=== PATIENT | female | born 1955 | race Hispanic/Latino ===

== ENCOUNTER → 2018-03-16 16:11 | Outpatient (CLI) | payer OTHER, MEDICAID, SELFPAY ==
--- NOTE | 2018-03-16 16:13 | DI.RAD.S_ITS ---
PROCEDURE: XR LUMBAR SPINE 2-3V INDICATIONS: fall at home low back pain TECHNIQUE: 3 views of the lumbar spine were acquired. COMPARISON: None. FINDINGS: Bones: 5 [id number] vertebrae are present. There is normal bony alignment. Mild compression fractures at the T10, T11, L1 and L5 levels of indeterminate age. Multilevel disc degeneration, most notably and moderate to severe the L5-S1 level. Lower lumbar spine facet joint arthropathy. Soft tissues: Overlying bowel gas pattern is normal. No suspicious soft tissue calcifications. IMPRESSION: 1. Mild wedge compression deformities as above of indeterminate acuity. Acute fractures cannot be excluded and if indicated MRI could be performed for further characterization. Dictated by: Moisés Cota [facility] Interpreted: Kirk Cifuentes MD on 03/16/2018 at 17:15 Approved by: Kirk Cifuentes M.D. on 03/16/2018 at 19:53
== END ==
PROVIDERS: PCP Physician Assistant; Visit Provider Physician Assistant
DX: M54.5 Low back pain (principal)
CPT/HCPCS: 72100

== ENCOUNTER → 2018-03-23 11:59 | Outpatient (CLI) | payer OTHER, MEDICAID, SELFPAY ==
--- NOTE | 2018-03-23 12:00 | DI.MG.S_ITS ---
BILATERAL DIGITAL SCREENING MAMMOGRAM 3D/2D WITH CAD: 03/23/2018 CLINICAL: Baseline exam. Routine screening. No prior exams were available for comparison. There are scattered fibroglandular elements in both breasts. Current study was also evaluated with a Computer Aided Detection (CAD) system. No significant masses, calcifications, or other findings are seen in either breast. IMPRESSION: NEGATIVE There is no mammographic evidence of malignancy. A 1 year screening mammogram is recommended. This exam was interpreted at Station ID: [id number]. NOTE: For mammograms, a report in lay terms will be sent to the patient. Approximately 15% of breast malignancies will not be visualized mammographically. In the management of a palpable breast mass, a negative mammogram must not discourage biopsy of a clinically suspicious lesion. Electronically Signed By: Christo hurtado/dank:03/23/2018 15:38:47 letter sent: Normal Exam ACR BI-RADS Category 1: Negative [id number]
== END ==
PROVIDERS: PCP Physician Assistant; Visit Provider Physician Assistant
DX: Z12.31 Encounter for screening mammogram for malignant neoplasm of breast (principal)
CPT/HCPCS: 77063; 77067

== ENCOUNTER → 2018-04-30 08:18 | Outpatient (CLI) | payer OTHER, MEDICAID, SELFPAY ==
--- NOTE | 2018-04-30 08:32 | DI.MRI.S_ITS ---
PROCEDURE: MR LUMBAR SPINE WO CON INDICATIONS: Compression fx lumbar spine/fall at home TECHNIQUE: Noncontrast sagittal T1 spin echo and T2 fast echo, sagittal STIR, axial T1 and T2 fast spin echo through the lumbar spine. In cases with scoliosis, additional coronal T2 fast spin echo may be performed. COMPARISON: [facility], CR, CHEST 2 VIEW, 06/06/2016, 10:25. [facility], CR, XR LUMBAR SPINE 2 OR 3 VIEWS, 04/14/2018, 15:34. [facility], CR, XR LUMBAR SPINE 2-3V, 03/16/2018, 16:27. FINDINGS: Image quality: Limited by beam hardening artifacts possibly related to metal clasps in patient's bra. Alignment and Curvature: There is normal bony alignment. Convex left curvature of the lumbar spine is noted. Bones: Minimal reactive endplate changes noted adjacent to the L5-S1 disc. Small Schmorl's node noted in the inferior endplate of the L5 vertebral body.. No acute vertebral body compression fractures. Spinal Cord: Conus medullaris terminates at the L1-2 disc level. Visualized cord demonstrates normal signal and size. Paraspinous Soft Tissues: No paravertebral masses. L1-L2: Loss of disc signal. Mild, diffuse disc bulge. No central stenosis. No neural foraminal narrowing. No neural impingement. L2-L3: Loss of disc signal. Mild, diffuse disc bulge. Small left foraminal disc protrusion. Mild bilateral facet hypertrophy. No central stenosis. Mild right and moderate left neural foraminal narrowing. No neural impingement. L3-L4: Loss of disc signal. Mild, diffuse disc bulge. Mild bilateral facet hypertrophy. No central stenosis. Mild bilateral neural foraminal narrowing. No neural impingement. L4-L5: Loss of disc signal and slight loss of disc height. Mild, diffuse disc bulge and mild bilateral facet hypertrophy. No central stenosis. Mild bilateral neural foraminal narrowing. No neural impingement. L5-S1: Loss of disc signal and slight loss of disc height. Mild, diffuse disc bulge. Mild bilateral facet hypertrophy. No central stenosis. Severe bilateral neural foraminal narrowing secondary to disc and facet disease with slight flattening deformity the L5 nerve roots bilaterally. Focal high intensity zone annulus compatible fissures. IMPRESSION: 1. No evidence of vertebral body compression fracture. 2. Multilevel degenerative disc disease. 3. Multilevel facet arthropathy. 4. No central stenosis. 5. Severe bilateral L5-S1 neural foraminal narrowing. Mild right and moderate left L2-L3 neural foraminal narrowing. Mild bilateral L3-L4 and L4-L5 neural foraminal narrowing. 6. Flattened deformity of the exiting bilateral L5 nerve roots secondary to neural foraminal narrowing. Please correlate with clinical data. Dictated by: Angelique Balderrama MD, PhD on 04/30/2018 at 10:34 Approved by: Angelique Balderrama MD, PhD on 04/30/2018 at 10:41
== END ==
PROVIDERS: PCP Physician Assistant; Visit Provider Physician Assistant
DX: M51.36 Other intervertebral disc degeneration, lumbar region (principal); M51.37 Other intervertebral disc degeneration, lumbosacral region; M47.816 Spondylosis without myelopathy or radiculopathy, lumbar region; M48.07 Spinal stenosis, lumbosacral region; M48.061 Spinal stenosis, lumbar region without neurogenic claudication
CPT/HCPCS: 72148

== ENCOUNTER → 2018-10-20 10:08 | Outpatient (CLI) | payer OTHER, MEDICAID, SELFPAY ==
[2018-10-20 10:25] LABS: Bacteria Urine None Seen; RBC Urine None Seen (0-5/HPF); WBC Urine None Seen (0-5/HPF)
[2018-10-20 11:30] LABS: Alanine Aminotransferase 30 IU/L (9-52); Albumin 4.4 g/dL (3.5-5.0); Albumin Globulin Ratio 1.3 (1.0-2.8); Alkaline Phosphatase 86 U/L (38-126); Aspartate Aminotransferase 29 IU/L (14-36); Bilirubin Total 0.3 mg/dL (0.2-1.3); Blood Urea Nitrogen 12 mg/dL (7-17); Calcium 8.8 mg/dL (8.4-10.2); Carbon Dioxide 28 mmol/L (22-32); Chloride 101 mmol/L (98-107); Estimated Glomerular Filt Rate > 60.0 mL/min (>60); Globulin 3.4 g/dL (1.7-4.1); Glucose 93 mg/dL (80-110); HEMOLYSIS < 15 (0-50); Potassium 4.9 mmol/L (3.4-5.1); Sodium 137 mmol/L (137-145); Total Protein 7.8 g/dL (6.3-8.2)
[2018-10-20 11:37] LABS: Appearance Urine UA CLEAR; Bilirubin Urine UA NEGATIVE (NEGATIVE); Color Urine UA YELLOW; Glucose Urine UA NEGATIVE (Negative); Ketones Urine UA NEGATIVE (NEGATIVE); Leukocyte Esterase Urine UA NEGATIVE (NEGATIVE); Nitrite Urine UA NEGATIVE (Negative); Occult Blood Urine UA NEGATIVE (Negative); Protein Urine UA NEGATIVE (Negative); Specific Gravity Urine UA 1.015 (1.000-1.035); Urobilinogen Urine UA 0.2 E.U./dL (0.2)
[2018-10-20 11:39] LABS: Culture Indicated Urine Cult Not Indicated; Urine Comments Microscopic Normal
[2018-10-20 12:15] LABS: Thyroid Stimulating Hormone 2.93 uIU/mL (0.47-4.68)
[2018-10-20 12:19] LABS: Vitamin B12 961 pg/mL (239-931)
[2018-10-22 18:16] LABS: Fecal Immunochemical Test NOT DETECTED (NOT DETECTED)
== END ==
PROVIDERS: PCP Physician Assistant; Visit Provider Physician Assistant
DX: K31.84 Gastroparesis (principal); R22.0 Localized swelling, mass and lump, head; R53.83 Other fatigue; Z12.11 Encounter for screening for malignant neoplasm of colon
CPT/HCPCS: 36415; 80053; 81001; 82274; 82607; 84443

== ENCOUNTER 2019-02-09 11:14 | Outpatient (CLI) | payer OTHER, MEDICAID, SELFPAY ==
[2019-02-09] VITALS (7 sets, daily range): BP systolic 120–147; BP diastolic 75–88; PULSE 61–84; RESP 16–18; TEMP 37.2; O2SAT 96–100
--- NOTE | 2019-02-09 11:16 | DI.RAD.S_ITS ---
PROCEDURE: PAIN L/S TRANSFORAMINAL INJECT INDICATIONS: 17867- Left L5/S1 TFESI FINDINGS: Fluoroscopic spot filming was performed to verify placement of spinal needles at the L5-S1 level(s), as labeled on the films. Appropriate location(s) of the needle tip(s) was confirmed by injection of iodinated contrast. Dictated by: Boby Morris M.D. on 02/09/2019 at 13:18 Approved by: Boby Morris M.D. on 02/09/2019 at 13:19
[2019-02-09] MEDS: MIDAZOLAM 5 MG/5 ML VIAL IV (12:06)
[2019-02-09] MEDS: fentaNYL 100 MCG/2 ML INJ 50 MCG IV (12:06)
[2019-02-09] MEDS: BUPIVACAINE 0.5% (PF) VIAL 2 ML INJ (12:12)
[2019-02-09] MEDS: IOPAMIDOL 15 ML VIAL 3 ML INJ (12:12)
[2019-02-09] MEDS: BETAMETHASONE 30 MG/5 ML MDV 12 MG INJ (12:12)
--- NOTE | 2019-02-09 12:16 | PC.NURSE ---
ASSISTING PT OFF TABLE AND TRANSPORTING TO POST PROC AREA IN STABLE CONDITION
--- NOTE | 2019-02-09 12:28 | PC.NURSE ---
TAKING CARE OF PT IN POST PROC AREA IN STABLE CONDITION
--- NOTE | 2019-02-09 12:55 | PC.NURSE ---
Attempted to ambulate pt, she stood up at chair and through crystalizer operator said her left leg is still numb and feels like she needs to wait a little longer.
--- NOTE | 2019-02-09 13:32 | PC.NURSE ---
Another attempt to stand the patient and she stood up ok but when she went to take a step her left leg buckled. So we will wait a little bit longer.
--- NOTE | 2019-02-16 15:38 | P.PCN_ITS ---
Procedures Date/Time Date of procedure: 02/09/19 Time of procedure: 12:37 General Procedure description: PREOP DIAGNOSIS 1. FORMAINAL STENOSIS WITH LE SYMPTOMS POST OP DIAGNOSIS 1. FORMAINAL STENOSIS WITH LE SYMPTOMS PROCEDURES 1. FLUOROSCOPICALLY GUIDED CONTRAST CONTROLLED TRANSFORAMINAL EPIDURAL STEROID INJECTION - Left L5/S1 PHYSICIAN: Terry Ramos DO INDICATIONS: Rosalinda is referred by PAC Mulugeta for treatment of Foraminal Stenosis with Left LE Symptoms FINDINGS Foraminal Nerve Root Compression secondary to disc disease and facet hypertrophy DESCRIPTION OF PROCEDURE: Following review of allergy and review of potential side effects and complications, including, but not necessarily limited to, infection, allergic reaction, local tissue breakdown, stroke, temporary or permanent nerve injury, paralysis, and possible , the patient indicated that the patient understood and agreed to proceed. An informed consent document was signed by the patient, witnessed by a nurse, and placed in the patient's chart. Additionally, other treatment options including medications, modalities, and physical therapy were reviewed with the patient. After review of previous anaesthesic history and IV conscious sedation the patie nt was deemed safe to proceed with todays procedure with IV conscious sedation as ASA class II designation. Safety time-out was performed to confirm patient ID, procedure to be performed and site of procedure. IV sedation was accomplished with a combination of 2mg of Versed and 50mcg of Fentanyl was administered by the RN after DO order, titrated to patient comfort during the course of the procedure while the patient remained responsive to all verbal commands In the prone position following sterile prep and drape of the lumbar region, the Left L5/S1 posterior neuroforamen was identified fluoroscopically. The skin was anesthetized via a 25-gauge 1.5-inch needle with 1% lidocaine solution. At this point, a 25-gauge 3.5-inch spinal needle was atraumatically introduced and advanced under fluoroscopic guidance through the posterior Left L5/S1 neuroforamen to approximately the anterior aspect of the canal. Depth was confirmed on lateral view. Following negative aspiration, injection of approximately 1.5 cc of Isovue 200 under live fluoroscopy in the AP view confirmed excellent flow along the nerve root, into the epidural space without vascular or intrathecal uptake observed Radiological data, including multiple fluoroscopic views of the lumbosacral spine, reveal a spinal needle at the Left L5/S1 posterior neuroforamen. Subsequent views show flow of contrast material flowing superiorly and inferiorly along the nerve root confirming epidural flow. Subsequently, a test dose of 1.5 cc of 1% lidocaine solution was administered and patient was observed for two minutes for signs or symptoms of complications, including abdominal pain, shortness of breath, bilateral upper or lower extremity weakness, nausea and vomiting, prior to steroid injection. At this point, a total of 3cc or 20mg of dexamethasone and 6mg betamethasone was injected without incident. The procedure tolerated the procedure well without signs or symptoms of complications prior to transfer to the recovery area continued monitoring without incident. The patient was then transferred to the recovery area where they were observed for an appropriate time after the injection. The patient reported a VAS score of 7 prior to the procedure and a post-procedure VAS of 0. Total Fluoroscopy Time: 20.9 seconds Total Conscious Sedation Time: 24min POST OP INSTRUCTIONS The patient was provided a Pain Log to continue to record their response to the target-specific procedure prior to follow-up visit with their referring physician. Additionally, specific post-injection care instructions and a contact number to our office were provided if concerns arise regarding possible complications associated with the procedure are suspected. Terry Ramos DO Complications: none
== END 2019-02-09 14:05 ==
LOC: RAD 11:15
PROVIDERS: PCP Physician Assistant; Visit Provider Physical Medicine & Rehabilitation
DX: M48.07 Spinal stenosis, lumbosacral region (principal); M51.17 Intervertebral disc disorders with radiculopathy, lumbosacral region
CPT/HCPCS: 64483; 99152; J0702; J2250; J3010

== ENCOUNTER 2019-06-15 08:39 | Outpatient (CLI) | payer OTHER, MEDICAID, SELFPAY ==
[2019-06-15] VITALS (10 sets, daily range): BP systolic 131–152; BP diastolic 72–85; PULSE 59–85; RESP 16–18; TEMP 36.6; O2SAT 98–100
--- NOTE | 2019-06-15 08:41 | DI.RAD.S_ITS ---
PROCEDURE: PAIN L/S TRANSFORAMINAL INJECT INDICATIONS: LUMBAR RIDICULOPATHY FINDINGS: Fluoroscopic spot filming was performed to verify placement of spinal needles at the L5-S1 level(s), as labeled on the films. Appropriate location(s) of the needle tip(s) was confirmed by injection of iodinated contrast. Dictated by: Boby Morris M.D. on 06/15/2019 at 10:20 Approved by: Boby Morris M.D. on 06/15/2019 at 10:21
--- NOTE | 2019-06-15 09:11 | PC.NURSE ---
Pre-procedure note: Patient is kiswahili speaking and had an language interpreter for pre and post procedure. Patient did not want language interpreter in the procedure room. Name of Care Tech Bethany
[2019-06-15] MEDS: fentaNYL 100 MCG/2 ML INJ 50 MCG IV (09:20)
[2019-06-15] MEDS: MIDAZOLAM 5 MG/5 ML VIAL IV (09:20)
[2019-06-15] MEDS: BUPIVACAINE 0.25% (PF) VIAL 2 ML INJ (09:26)
[2019-06-15] MEDS: BETAMETHASONE 30 MG/5 ML MDV 6 MG INJ (09:26)
[2019-06-15] MEDS: DEXAMETHASONE 10 MG/ML VIAL 20 MG INJ (09:26)
[2019-06-15] MEDS: IOPAMIDOL 15 ML VIAL 3 ML INJ (09:26)
--- NOTE | 2019-06-15 09:29 | PC.NURSE ---
ASSISTING PT OFF TABLE AND TRANSPORTING TO POST PROC AREA IN STABLE CONDITION
--- NOTE | 2019-06-15 09:37 | PM.PROC.1 ---
Procedures Date/Time Date of procedure: 06/15/19 Time of procedure: 09:37 General Procedure description: PREOP DIAGNOSIS 1. FORMAINAL STENOSIS WITH LE SYMPTOMS POST OP DIAGNOSIS 1. FORMAINAL STENOSIS WITH LE SYMPTOMS PROCEDURES 1. FLUOROSCOPICALLY GUIDED CONTRAST CONTROLLED TRANSFORAMINAL EPIDURAL STEROID INJECTION - Left L5/S1 PHYSICIAN: Terry Ramos DO INDICATIONS: Rosalinda is referred by PAC Mulugeta for treatment of Foraminal Stenosis with Left LE Symptoms FINDINGS Foraminal Nerve Root Compression secondary to disc disease and facet hypertrophy DESCRIPTION OF PROCEDURE: Following review of allergy and review of potential side effects and complications, including, but not necessarily limited to, infection, allergic reaction, local tissue breakdown, stroke, temporary or permanent nerve injury, paralysis, and possible , the patient indicated that the patient understood and agreed to proceed. An informed consent document was signed by the patient, witnessed by a nurse, and placed in the patient's chart. Additionally, other treatment options including medications, modalities, and physical therapy were reviewed with the patient. After review of previous anaesthesic history and IV conscious sedation the patient was deemed safe to proceed with todays procedure with IV conscious sedation as ASA class II designation. Safety time-out was performed to confirm patient ID, procedure to be performed and site of procedure. IV sedation was accomplished with a combination of 2mg of Versed and 50mcg of Fentanyl was administered by the RN after DO order, titrated to patient comfort during the course of the procedure while the patient remained responsive to all verbal commands In the prone position following sterile prep and drape of the lumbar region, the Left L5/S1 posterior neuroforamen was identified fluoroscopically. The skin was anesthetized via a 25-gauge 1.5-inch needle with 1% lidocaine solution. At this point, a 25-gauge 3.5-inch spinal needle was atraumatically introduced and advanced under fluoroscopic guidance through the posterior left L5/S1 neuroforamen to approximately the anterior aspect of the canal. Depth was confirmed on lateral view. Following negative aspiration, injection of approximately 1.5cc of Isovue 200 under live fluoroscopy in the AP view confirmed excellent flow along the nerve root, into the epidural space without vascular or intrathecal uptake observed Radiological data, including multiple fluoroscopic views of the lumbosacral spine, reveal a spinal needle at the left L5/S1 posterior neuroforamen. Subsequent views show flow of contrast material flowing superiorly and inferiorly along the nerve root confirming epidural flow. Subsequently, a test dose of 1.5cc of 1% lidocaine solution was administered and patient was observed for two minutes for signs or symptoms of complications, including abdominal pain, shortness of breath, bilateral upper or lower extremity weakness, nausea and vomiting, prior to steroid injection. At this point, a total of 3cc or 20mg of dexamethasone and 6mg of betamethasone was injected without incident. The procedure tolerated the procedure well without signs or symptoms of complications prior to transfer to the recovery area continued monitoring without incident. The patient was then transferred to the recovery area where they were observed for an appropriate time after the injection. The patient reported a VAS score of 7 prior to the procedure and a post-procedure VAS of 0. Total Fluoroscopy Time: 20.9 seconds Total Conscious Sedation Time: 24min POST OP INSTRUCTIONS The patient was provided a Pain Log to continue to record their response to the target-specific procedure prior to follow-up visit with their referring physician. Additionally, specific post-injection care instructions and a contact number to our office were provided if concerns arise regarding possible complications associated with the procedure are suspected. Terry Ramos DO Complications: none
--- NOTE | 2019-06-15 17:31 | PC.NURSE ---
Post procedure note: Late entry--Patient arrived for monitoring post procedure at 0940. Patient awake, motor winder at chairside. Left leg numb when transfered from wheelchair to recliner. Denies any pain or discomfort. Pain level 0/10. VSS, O2 sat WNL on RA. Tolerating PO without any nausea. discharged instructions reviwed with vice president consulting services and daughter with good understanding. Numbness improved at 1100. Patient able to stand and transfer to w/c without difficulty. discharged to home w/c to car with daughter at 1112.
== END 2019-06-15 11:12 ==
LOC: RAD 08:40
PROVIDERS: PCP Physician Assistant; Visit Provider Physical Medicine & Rehabilitation
DX: M48.07 Spinal stenosis, lumbosacral region (principal); M51.17 Intervertebral disc disorders with radiculopathy, lumbosacral region
CPT/HCPCS: 64483; 99152; J0702; J1100; J2250; J3010